=== PATIENT | male | born 1935 | race Caucasian/White ===

== ENCOUNTER → 2017-11-07 | Outpatient (CLI) | payer MEDICARE ==
--- NOTE | 2017-11-11 10:14 | RSPPFT ---
DATE OF PROCEDURE: 11/07/17 COMMENTS: Spirometry with FVC of 2.5 predicted 3.3, FEV1 of 2.2 predicted 2.5, FEV1/FVC ratio 88% predicted 77%. Lung volumes are within the predicted range. DLCO is 81% of predicted. IMPRESSION:
== END ==
LOC: PHRSP 08:22
PROVIDERS: ATTEND Internal Medicine Pulmonary Disease
DX: R05 Cough (principal)
CPT/HCPCS: 36600; 82805; 94060; 94618; 94726; 94729